=== PATIENT | male | born 1980 | race Caucasian/White ===

== ENCOUNTER 2020-02-28 20:14 | Inpatient (IN) | payer SELFPAY ==
[~2020-02-28] VITALS: Ht 175.3 cm; Wt 90.7 kg
[2020-02-28] MEDS ORDERED: DEXTROSE 50%-WATER 50 ML DISP.SYRIN ONE (20:20)
[2020-02-28] MEDS ORDERED: HALOPERIDOL LACTATE INJ 5 MG/ML VIAL ONE (20:26)
[2020-02-28] MEDS ORDERED: diphenhydrAMINE HCL 50 MG/ML VIAL ONE (20:26)
[2020-02-28] MEDS ORDERED: LORAZEPAM INJ 2 MG/ML VIAL ONE (20:28)
[2020-02-28] MEDS ORDERED: LORAZEPAM INJ 2 MG/ML VIAL IM ONE (20:30)
[2020-02-28] MEDS ORDERED: diphenhydrAMINE HCL 50 MG/ML VIAL IM ONE (20:30)
[2020-02-28] MEDS ORDERED: HALOPERIDOL LACTATE INJ 5 MG/ML VIAL IM ONE (20:30)
--- NOTE | 2020-02-28 20:46 | NUR ---
[place] FROM [place] WHERE PT IS STAYING AT. TO ER BED 12. NOT IN RESP DISTRESS, BREATHING EVEN AND UNLABORED. PT WAS CALLED IN BY NEIGHBOR LYING IN THE BACKY[place]. PT WAS GIVEN NARCAN BY THE DRAPERY HEMMER AUT[employer]IC AND AWKOEN . WHEN PT GOT AWOKEN, PT GOT AGITATED AND BECAME AGGRESSIVE AND COMBATIVE. PT RECEIVED AWAKE, MUMBLING INCOHERENTLY AND COMBATIVE. UNABLE TO GET INFORMATION FROM PT. PROVIDER WAS AT THE BEDSIDE FOR EVAL. ORDERS RECEIVED NOTED AND CARRIED OUT. MEDICATED ORDERED
[2020-02-28] MEDS ORDERED: MIDAZOLAM HCL 5 MG/5ML VIAL ONE (20:50)
--- NOTE | 2020-02-28 20:52 | NUR ---
[employer] AT BEDSIDE
[2020-02-28] MEDS ORDERED: MIDAZOLAM HCL 5 MG/5ML VIAL IV ONE (21:00)
[2020-02-28] MEDS ORDERED: IV NS 0.9% 1,000 ML BAG IV ONE ×2 (21:00→22:00)
[2020-02-28 21:10] LABS: BASOPHILS % (AUTO) 0.4 % (0.0-2.0); EOSINOPHILS % (AUTO) 2.5 % (0.0-6.0); HEMATOCRIT 39 % (39-51); HEMOGLOBIN 13.2 g/dL (13.5-17.5); LYMPHOCYTES # (AUTO) 1.4 /CMM (0.8-4.8); LYMPHOCYTES % (AUTO) 13.7 % (20.0-44.0); MEAN CORPUSCULAR HGB CONC 34 g/dl (31.0-36.0); MEAN CORPUSCULAR VOLUME 83 fL (80-96); MONOCYTES # (AUTO) 1.6 /CMM (0.1-1.30); MONOCYTES % (AUTO) 15.7 % (2.0-12.0); NEUTROPHILS # (AUTO) 7.1 /CMM (1.8-8.9); NEUTROPHILS % (AUTO) 67.7 % (43.0-81.0); PLATELET COUNT (AUTO) 227 /CMM (150-450); RED BLOOD CELL COUNT(AUTO) 4.74 MIL/uL (4.5-6.0); WHITE BLOOD COUNT (AUTO) 10.5 K/uL (4.3-11.0)
[2020-02-28 21:25] LABS: CALCIUM, SERUM 9.4 mg/dL (8.5-10.1); CARBON DIOXIDE 25 mmol/L (21-32); CHLORIDE 100 mmol/L (98-107); CREATININE 1.1 mg/dL (0.6-1.3); GLUCOSE 86 mg/dL (74-106); POTASSIUM 3.5 mmol/L (3.5-5.1); SODIUM SERUM 140 mmol/L (136-145); UREA NITROGEN, BLOOD 17 mg/dL (7-18)
[2020-02-28 21:29] LABS: ALANINE AMINOTRANSFERASE 64 U/L (12-78); ALBUMIN 3.4 g/dL (3.4-5.0); ALCOHOL, BLOOD < 3 mg/dL (0-0); ALKALINE PHOSPHATASE 116 U/L (46-116); ASPARTATE AMINOTRANSFERASE 33 U/L (15-37); BILIRUBIN,DIRECT 0.3 mg/dL (0.0-0.2); BILIRUBIN,TOTAL 0.9 mg/dL (0.2-1.0); TOTAL PROTEIN, SERUM 7.9 g/dL (6.4-8.2)
[2020-02-28 21:31] LABS: ACETAMINOPHEN 1 ug/ml (10-30)
[2020-02-28 21:35] LABS: BAND % (MANUAL) 1 % (0.0-5.0); EOSINOPHILS % (MANUAL) 1 % (0-4); LYMPHOCYTES % (MANUAL) 17 % (16-48); MONOCYTES % (MANUAL) 16 % (0-11.0); NEUTROPHILS % (MANUAL) 65 (42-76)
[2020-02-28] MEDS ORDERED: OLANZAPINE 10 MG VIAL IM ONE ×2 (21:55→22:00)
--- NOTE | 2020-02-28 22:50 | NUR ---
MOVE SHEET TURNED INTO ADMITTING DEPARTMENT
[2020-02-28 23:11] LABS: BILIRUBIN,URINE NEGATIVE (NEGATIVE); BLOOD, URINE MODERATE Ery/uL (NEGATIVE); COLOR,URINE YELLOW (YELLOW); LEUKOCYTE ESTERASE ,URINE NEGATIVE (NEGATIVE); NITRITE, URINE NEGATIVE (NEGATIVE); PH,URINE 5.5 (5.0-8.0); PROTEIN,URINE NEGATIVE (NEGATIVE); UGLUCOSE NEGATIVE (NEGATIVE); UROBILINOGEN,URINE 0.2 EU/dL (0.2)
--- NOTE | 2020-02-28 23:12 | NUR ---
STEFAN GILBERT SPEAKING WITH KARLA HERNANDEZ REGARDING ADMISSION
[2020-02-28 23:23] LABS: BACTERIA,URINE None seen /HPF (None Seen); SQUAMOUS EPITHELIAL CELL,UR Few /HPF (None Seen); URINE AMORPHOUS URATE Few /HPF (None Seen); WBC,URINE 0-2 /HPF (0-3)
[2020-02-29] MEDS ORDERED: ONDANSETRON HCL/PF 4 MG/2 ML VIAL IVP PRN
[2020-02-29] MEDS ORDERED: IV NS 0.9% 1,000 ML IV PRN
[2020-02-29] MEDS ORDERED: ACETAMINOPHEN 325 MG TABLET PO PRN
--- NOTE | 2020-02-29 01:58 | NUR ---
PATIENT IS SLEEPING. EASILY AROUSABLE THROUGH VERBAL AND TACTILE STIMULI. CONNECTED TO THE MONITOR. BREATHING EVENLY AND UNLABORED ON ROOM AIR. SITTER IS AT BEDSIDE. VSS.
--- NOTE | 2020-02-29 04:12 | NUR ---
PT AAOX4. EASILY AROUSABLE BY VOICE. DENIES SI/HI AT THIS TIME. VITAL SIGNS STABLE. WILL CONTINUE TO MONITOR
--- NOTE | 2020-02-29 06:18 | NUR ---
IV removed. Catheter intact and site benign. Pressure and 4x4 applied to site. No bleeding noted.
[2020-02-29 06:19] VITALS: BP 132/81
--- NOTE | 2020-02-29 06:19 | NUR ---
Patient discharged to home in stable condition. Written and verbal after care instructions given. Patient verbalizes understanding of instruction.
== END 2020-02-29 06:19 | disposition home or self-care (01) | DRG 92 ==
LOC: ER 20:17 → EDBD 20:17 → OBSER 23:24
PROVIDERS: ADMIT Nurse Practitioner Acute Care; ATTEND Nurse Practitioner Acute Care
DX: G92 Toxic encephalopathy (principal); D68.59 Other primary thrombophilia
CPT/HCPCS: 36415; 70450-TC; 80048-TC; 80076-TC; 81001; 82962-TC; 85025-TC; 87081-TC; G0378; G0480; J1200; J1630; J2060; J2250; J3490; J7030